=== PATIENT | male | born 1980 | race Caucasian/White ===

== ENCOUNTER 2016-11-24 21:49 | Emergency (ER) | payer OTHER ==
[~2016-11-24] VITALS: Ht 180.3 cm; Wt 84.5 kg
[~2016-11-24 21:49] MED LIST: BACTRIM,SEPT1 TABLET; CHERATUSSIN AC473 ML; CLARITHROMYCIN500 M1; CYCLOBENZAPRINE 10 M; ENDOCET 5-3251 EACH; FEXOFENADINE HC60 MG; GABAPENTIN300 MG; GLUCOSAMINE1000 MG PO; IBUPROFEN800 MG; MEDROL DOSEPAK4 MG PO; MULTI VITAMIN1 EACH PO; OMEGA-3100 MG PO; PERCOCET 5/31 TABLET PO; ULTRAM50 MG
[2016-11-24 23:16] LABS: HEMATOCRIT 42.9 % (38.0-50.0); MCH 30.4 PG (29.0-34.0); MCHC 33.8 G/DL (30.0-36.0); MCV 89.9 FL (86-99); PLATELET COUNT 240 K/uL (156-360); RBC DIS.WIDTH-CV 12.1 % (11.8-14.6); RBC DIS.WIDTH-SD 39.6 % (39-53); RED BLOOD COUNT 4.77 M/uL (4.00-5.50)
[2016-11-24] MEDS ORDERED: CLEOCIN300 MG PO (23:28)
[2016-11-24 23:34] LABS: CHLORIDE 103 mEq/L (99-109); POTASSIUM 3.9 mEq/L (3.7-5.4); SODIUM 141 mEq/L (136-147)
[2016-11-24 23:36] LABS: GLUCOSE 90 mg/dL (70-99)
[2016-11-24 23:37] LABS: ANION GAP 9 MEQ/L (2-14)
[2016-11-24 23:40] LABS: GFR ESTIMATE (CALCULATED) > 59 mL/min/
[2016-11-24 23:41] LABS: UREA NITROGEN (BUN) 22 mg/dL (9-23)
[2016-11-24 23:44] VITALS: BP 00/0
== END 2016-11-24 23:45 | disposition home or self-care (01) ==
LOC: EME 21:49
PROVIDERS: Emergency Medicine
DX: L03.113 Cellulitis of right upper limb (principal); Z98.890 Other specified postprocedural states; Z88.0 Allergy status to penicillin
CPT/HCPCS: 80048; 83605; 85027; 99281; 99283